=== PATIENT | female | born 1975 | race Caucasian/White ===

== ENCOUNTER 2024-02-14 09:01 | Emergency (ER) | payer OTHER, MEDICARE, MEDICAID, SELFPAY ==
[2024-02-14 09:51] VITALS: BP 135/84; PULSE 64; RESP 18; TEMP 36.6; O2SAT 98; BMI 20.1
--- NOTE | 2024-02-14 10:06 | XR_ITS ---
Examination: Foot, right, 3 views Technique: AP, oblique, lateral views foot, 3 views Date and time of exam: February 14, 2024 1019 hours INDICATIONS: Right foot pain beginning one month ago. FINDINGS: Moderate osteopenia No fracture No cortical bone destruction No dislocation No opaque foreign body IMPRESSION: No fracture No cortical bone destruction
--- NOTE | 2024-02-14 10:53 | EDNOTE_ITS ---
<Statement entered by Montse Nice MD - 02/20/24 17:56> As co-signing physician, I was present and available for consult prn. I concur with the plan and care as documented by the midlevel provider. Lower Extremity Injury RME/HPI General Chief Complaint: Ankle/Foot Injury Stated Complaint: Right foot pain X 1 month Time Seen by Provider: 02/14/24 09:21 Source: patient Arrival date/time: 02/14/24 09:01 This is a 48-year-old female who presents to the emergency department with complaints of right foot pain worsening over 1 month. Patient reports that she has history of foot neuropathy and chronic pain. She did not recently injure her foot. Denies any open sores or recent injuries. Not currently on any pain medication requesting pain medication and x-ray today. Mode of arrival: ambulatory Related Data Home Medications ?Medication ?Instructions ?Recorded ?Confirmed cariprazine 6 mg capsule (Vraylar) 6 mg PO BID ##0 11/12/15 05/08/23 clonazepam 1 mg tablet (Klonopin) 2 mg PO TID #0 tabs 11/12/15 05/08/23 carbamazepine 200 mg tablet 200 mg PO BID 08/06/18 05/08/23 lumateperone 42 mg capsule 42 mg PO QDAY 08/14/22 05/08/23 (Caplyta) vortioxetine 20 mg tablet 20 mg PO QDAY 08/14/22 05/08/23 (Trintellix) Previous Rx's ?Medication ?Instructions ?Recorded cyclobenzaprine 10 mg tablet 10 mg PO HS #6 tabs 09/11/23 lidocaine 5 % topical patch 1 patch topical QDAY #15 ea 11/04/23 naproxen 500 mg tablet 500 mg PO BID PRN pain #30 tabs 11/04/23 gabapentin 100 mg capsule 100 mg PO TID PRN nerve pain #20 02/14/24 caps Allergies Allergy/AdvReac Type Severity Reaction Status Date / Time Penicillins Allergy Mild Rash Verified 11/04/23 17:27 codeine Allergy Unknown Vomiting Verified 11/04/23 17:27 Sulfa (Sulfonamide Allergy Unknown Rash Verified 11/04/23 17:27 Antibiotics) Review of Systems Review of Systems Systems Reviewed: All systems reviewed, normal except as documented Narrative Review of Systems: Gen: No fever, no chills, no weight loss EYES: No discharge, no visual changes, no pain HEENT: No ear pain, no congestion, no sore throat PULM: No shortness of breath, no cough, no congestion CV: No chest pain, no dyspnea on exertion, no palpitations GI: No nausea, no vomiting, no diarrhea, no pain, no constipation : No frequency, no urgency,? no dysuria Musc/skel:+foot pain, no back pain Skin: No rash? ED Exam Narrative Physical exam: General: Sittiing in Exam table in no acute distress, answering questions appropriately HENT: normocephalic, atraumatic, EOMI, PERRLA, moist mucous membranes Chest: chest wall is nontender Cardiac: regular rate and rhythm, normal S1 and S2, no murmurs, rubs, or gallops, capillary refill ?2 seconds Pulmonary: clear to auscultation bilaterally, no wheezing, crackles, or rhonchi Abdominal: active bowel sounds, soft, nontender, nondistended Neuro: A&OX3, CN II-XII intact, sensation grossly intact bilaterally in UE and LE. Skin: no rashes, no ecchymosis Ext: no lower extremity edema. foot exam normal other than ttp to plantar aspect right foot Course Quality Measures none Orders Category Date Time Status XR foot comp RT min 3V Stat Exams 02/14/24 10:06 Completed Vital Signs Vital signs: Vital Signs Temperature 97.9 F 02/14/24 09:51 Pulse Rate 64 02/14/24 09:51 Respiratory Rate 18 02/14/24 09:51 Blood Pressure 135/84 H 02/14/24 09:51 Pulse Oximetry (%) 98 02/14/24 09:51 Oxygen Delivery Method Room Air 02/14/24 09:51 Extremity Injury, Lower Patient data External records reviewed:: [facility] previous records Clinical information provided by:: patient Social determinants that could affect healthcare access:: none Patient has the following chronic illnesses:: no How is presenting disease/condition affected by chronic disease/condition?: no chronic disease Evaluation data The following diagnostics were reviewed and interpreted by me:: radiology exam(s) Lab and/or radiology exams considered but not ordered:: no Interpretation Summary: Examination: Foot, right, 3 views Technique: AP, oblique, lateral views foot, 3 views Date and time of exam: February 14, 2024 1019 hours INDICATIONS: Right foot pain beginning one month ago. FINDINGS: Moderate osteopenia No fracture No cortical bone destruction No dislocation No opaque foreign body IMPRESSION: No fracture No cortical bone destruction Medications / Prescriptions Medications or Prescriptions considered but not ordered:: none Medication administrations:: no Consultations Consultation(s) initiated? (list below): No Diagnosis Extremity Injury, Lower Differential Diagnosis: ankle sprain and strain, puncture wound of foot, fracture of toe and ankle fracture Most likely diagnosis given after review of the tests above:: Neuropathy of foot Admission Indicated Admission indicated?: not indicated Explain why admission is indicated or not indicated:: none Admission Request Was there a request for admission?: No Disposition Plan Disposition Plan: Discharge Discharge Attestation Discharge Attestation: The patient and all family members were given an opportunity to ask questions and understood the discharge instructions. Discharge instructions specifically effects, indications for sooner follow up or return to the emergency department, and the expected course of current diagnosis. Patient condition: Stable Discharge Plan Plan Patient Disposition: HOME (Self Care) Prescriptions/Referrals Prescriptions/Med Rec: New gabapentin 100 mg capsule 100 mg PO TID PRN (Reason: nerve pain) Qty: 20 0RF No Action clonazepam [Klonopin] 1 MG tablet 2 mg PO TID Qty: 0 Vraylar 6 MG capsule 6 mg PO BID Qty: 0 carbamazepine 200 mg Tablet 200 mg PO BID naproxen 500 mg tablet 500 mg PO BID PRN (Reason: pain) Qty: 30 0RF lidocaine 5 % adhesive patch,medicated 1 patch topical QDAY Qty: 15 0RF Rx Instructions: leave on most painful area for up to 12 hrs Trintellix 20 mg Tablet 20 mg PO QDAY Caplyta 42 mg Capsule 42 mg PO QDAY cyclobenzaprine 10 mg tablet 10 mg PO HS Qty: 6 0RF Referrals: Alice Dean FNP (ARIACHL) [Primary Care Provider] - In 1 week Problem List Clinical Impression: Neuropathy of foot Patient/Caregiver Discharge Instructions Discharge Activity: activity as tolerated Education Materials: ED Neuropathy, Peripheral Additional Instructions: Take the nerve pain medication that was sent to the pharmacy please follow-up with your primary doctor. Return to the emergency department is any worsening symptoms change in condition. Print Language: Indonesian Stand Alone Forms: Lakesha Award Info., Patient Portal Info Letter GARCIA/CLOTH BLEACHING SUPERVISOR Supervising Physician PA/CLOTH BLEACHING SUPERVISOR Supervising Physician: dr. Saenz
== END 2024-02-14 13:21 | disposition home or self-care (01) ==
PROVIDERS: Emergency Provider Emergency Medicine; PCP Nurse Practitioner Primary Care
DX: G62.9 Polyneuropathy, unspecified (principal)
CPT/HCPCS: 73630; 99283

== ENCOUNTER 2024-03-19 17:25 | Emergency (ER) | payer OTHER, MEDICARE, MEDICAID, SELFPAY ==
[2024-03-19 18:18] VITALS: BP 140/72; PULSE 75; RESP 16; TEMP 36.5; O2SAT 98
--- NOTE | 2024-03-19 18:29 | PC.NURSE ---
Patient to ER from [facility] and taken to room 19 with her friend at bedside. Patient c/o SI, Patient is tearful and nervous. Maria D Wilkins wanded patient, patient in her pajamas and refuses to get into a gown. When asking patient why she is here she states the voices have been telling me to kill myself and they are getting louder patient states they started this morning, patient states she tried to cut her left wrist with a knife. Superficial abrasion noted to inner left wrist, no bleeding noted. Patient states she has tried to kill herself before by overdosing and last time was 4 yrs ago. Patient also states her mother a few months ago and she has been having problems with her and thinks he is gonna throw her out of the house. Ciales scale completed. 1 to [address] for patient's safety[address] Chart up to be seen by er provider.
--- NOTE | 2024-03-19 18:32 | PD.EDSUICD ---
ED Psych RME/HPI General Chief Complaint: Suicidal Stated Complaint: states attempted to slit wrist with knife/SI Time Seen by Provider: 03/19/24 18:23 Source: patient Arrival date/time: 03/19/24 17:25 Mode of arrival: ambulatory Limitations: no limitations RME / HPI RME / HPI Narrative: Dr. Epperson?s Main ED Evaluation: The patient is a 48-year-old female with a known history of mental health conditions, who presents to the emergency department via private auto due to worsening psychiatric symptoms. She reports experiencing auditory hallucinations instructing her to harm herself. The patient states that these symptoms intensify during periods of heightened stress. She shares her mother recently passed a few months ago. She has been under the care of an established psychiatrist for over ten years and confirms adherence to her current psychotropic medication regimen, with an adequate supply on hand. The patient denies any history of receiving mental health treatment at this hospital and reports no other associated symptoms or medical complaints. However, during the examination, she was observed coughing. She attributes this to her COPD and a long-standing history of tobacco use. MD complaint: feels depressed and other (auditory hallucinations) Duration: changing over time Exacerbating factors: other (stress) Context: significant life stressor Associated psychiatric symptoms: auditory hallucinations Associated symptoms: denies other symptoms Treatments prior to arrival: none Related Data Home Medications ?Medication ?Instructions ?Recorded ?Confirmed cariprazine 6 mg capsule (Vraylar) 6 mg PO BID ##0 11/12/15 05/08/23 clonazepam 1 mg tablet (Klonopin) 2 mg PO TID #0 tabs 11/12/15 05/08/23 carbamazepine 200 mg tablet 200 mg PO BID 08/06/18 05/08/23 lumateperone 42 mg capsule 42 mg PO QDAY 08/14/22 05/08/23 (Caplyta) vortioxetine 20 mg tablet 20 mg PO QDAY 08/14/22 05/08/23 (Trintellix) Previous Rx's ?Medication ?Instructions ?Recorded cyclobenzaprine 10 mg tablet 10 mg PO HS #6 tabs 09/11/23 lidocaine 5 % topical patch 1 patch topical QDAY #15 ea 11/04/23 naproxen 500 mg tablet 500 mg PO BID PRN pain #30 tabs 11/04/23 gabapentin 100 mg capsule 100 mg PO TID PRN nerve pain #20 02/14/24 caps Allergies Allergy/AdvReac Type Severity Reaction Status Date / Time Penicillins Allergy Mild Rash Verified 03/19/24 17:28 codeine Allergy Unknown Vomiting Verified 03/19/24 17:28 Sulfa (Sulfonamide Allergy Unknown Rash Verified 03/19/24 17:28 Antibiotics) gabapentin AdvReac Mild Vomiting Verified 03/19/24 17:28 Review of Systems Review of Systems Systems Reviewed: All systems reviewed, normal except as documented Past Medical History Past Medical History NEUROLOGIC: Positive Neurological Disorders, Seizures and Peripheral Neuropathy CARDIAC: Negative Cardiac Disorders or Congestive Heart Failure RESPIRATORY: Positive Chronic Obstructive Pulmonary Disease (COPD), Bronchitis (in past) and Pneumonia (in past); Negative Asthma GASTROINTESTINAL: Positive Gastrointestinal Disorders and Gall Bladder Disease; Negative Hepatitis GENITOURINARY: Negative Genitourinary Disorders or Renal Disease REPRODUCTIVE: Positive Previous Pregnancies; Negative Pelvic Inflammatory Disease MUSCULOSKELETAL: Positive Musculoskeletal Disorders, Fibromyalgia and Fractures ENDOCRINE: Negative Endocrine Disorders, Diabetes Mellitus Type 1 or Diabetes Mellitus Type 2 HEMATOLOGIC: Positive Blood Disorders and Anemia; Negative Sickle Cell Disease PSYCHO/SOCIAL: Positive Psychiatric Problems, Schizophrenia, Bipolar Disorder, Depression (manic depressive) and Anxiety OTHER HISTORY: Positive Hospitalization, Blood Transfusions, Chicken Pox and Clostridium Difficile; Negative Autoimmune Disease, Shingles, Blood Transfusion Reaction, Anesthesia Reactions, MRSA or Cancer Family History FAMILY HISTORY: Positive Family Psychiatric Problems, Family Cardiac Disorders and Family Surgery; Negative Family Respiratory Disorders, Family Gastrointestinal Problems, Family Cancer or Family Anesthesia Reaction Surgical History SURGICAL: Positive Abdominal Surgery, Hysterectomy and Tubal Ligation; Negative Cardiac Surgery, Pacemaker, Endocrine Surgery or Joint Replacement Social History SMOKING STATUS: Current every day smoker SECOND HAND EXPOSURE: No SUBSTANCE USE: does not use ED Exam Narrative Physical exam: GENERAL APPEARANCE: alert and oriented x 4, well-developed, well-nourished, no acute distress VITALS: All vitals were reviewed and the pulse ox is 98% on room air, which is normal according to my interpretation. HEENT: Normocephalic, atraumatic; pupils equal, round, reactive to light; EOMI; mucous membranes pink, moist; oropharynx clear NECK: Supple LUNGS: CTABL; no wheezes, no rales, no rhonchi HEART: Regular rate, regular rhythm; normal S1, S2; no murmurs ABDOMEN: non distended; normal BS; soft, no tenderness, no guarding, no rebound; no masses, no organomegaly, no hernia BACK: no CVA tenderness EXTREMITIES: atraumatic; no edema NEUROLOGIC: awake; alert and oriented x4; cranial nerves II-XII grossly intact; no focal sensory or motor deficits PSYCHIATRIC: +auditory hallucinations, tearful SKIN: warm, dry, normal color; no rashes General Limitations: Present no limitations Course Course Course Narrative: Patient was placed in ED observation at 2130 on 03/19/2024 for treatment and monitoring of psychiatric symptoms. Symptoms consist of auditory hallucinations instructing her to harm herself. Treatment plan includes psychiatric consult, reassessments, and possible placement into psychiatric facility. The patient had access and provided personal hygiene, shower, food, water, and daily medications. Patient is medically clear for crisis evaluation. 0600: Care signed out to Dr. England (emergency physician). Past medical, surgical, social and family history reviewed. Vitals and home medications reviewed. Results and treatment plan discussed. They will assume the care of the patient at this time and will follow the patient, pending 1798 psychiatric evaluation. At this time, observation has ended. Quality Measures none Orders Category Date Time Status 1799 Psychiatric Hold NOW Care 03/19/24 18:30 Ordered Acetaminophen Stat Lab 03/19/24 18:54 Completed Alcohol, Blood Medical Stat Lab 03/19/24 18:54 Completed Basic Metabolic Panel Stat Lab 03/19/24 18:54 Completed CBC Stat Lab 03/19/24 18:54 Completed Drug Screen,Urine Stat Lab 03/19/24 18:50 Completed Free T4 (Free Thyroxine) Stat Lab 03/19/24 18:54 Completed HCG Qualitative,Urine Stat Lab 03/19/24 18:50 Completed Salicylate Stat Lab 03/19/24 18:54 Completed TSH [Thyroid Stimulating Hormone] Stat Lab 03/19/24 18:54 Completed LORazepam [Ativan] Med 03/19/24 18:30 Discontinued 2 mg PO X1 ONE Vital Signs Vital signs: Vital Signs Temperature 97.7 F 03/19/24 18:18 Pulse Rate 75 03/19/24 18:18 Respiratory Rate 16 03/19/24 18:18 Blood Pressure 140/72 H 03/19/24 18:18 Pulse Oximetry (%) 98 03/19/24 18:18 Oxygen Delivery Method Room Air 03/19/24 18:18 Psych MDM Narrative MDM Narrative:: 2141 Patient is medically cleared for mental health evaluation. Scribe Attestation: I, Jazzmine Brock, am scribing for and in the presence of Dr. Epperson. Provider Notation: Although this document has been carefully reviewed, there may still be some phonetic and other typographical errors. These errors are purely grammatical due to imperfections in the software program and should not be construed in any way to compromise the substance of the patient's medical care during this visit. Patient data External records reviewed:: [facility] previous records Clinical information provided by:: patient Social determinants that could affect healthcare access:: mental health Patient has the following chronic illnesses:: See PMH How is presenting disease/condition affected by chronic disease/condition?: exacerbated by Evaluation data The following diagnostics were reviewed and interpreted by me:: lab results Lab and/or radiology exams considered but not ordered:: None Interpretation Summary: Utox neg Medications / Prescriptions Medications or Prescriptions considered but not ordered:: None Medication administrations:: Medication Administration History Discontinued Medications Lorazepam (Lorazepam 0.5 Mg Tablet) 2 mg PO X1 ONE Stop: 03/19/24 18:31 Last Admin: 03/19/24 18:57 Dose: 2 mg Documented By: KM As above Consultations Consultation(s) initiated? (list below): No Diagnosis Psych Differential Diagnosis: other (decompensated psychosis, depressive episode due to psychotic features, suicidal ideation, hypothyroidism) Most likely diagnosis given after review of the tests above:: See clinical impression Admission Indicated Admission indicated?: not indicated Explain why admission is indicated or not indicated:: Pending mental health evaluation Admission Request Was there a request for admission?: No Disposition Plan Disposition Plan: other (specify) (Pending mental health evaluation) Discharge Plan Plan Disposition Comment: Stable at sign out. Prescriptions/Referrals Prescriptions/Med Rec: No Action clonazepam [Klonopin] 1 MG tablet 2 mg PO TID Qty: 0 Vraylar 6 MG capsule 6 mg PO BID Qty: 0 carbamazepine 200 mg Tablet 200 mg PO BID naproxen 500 mg tablet 500 mg PO BID PRN (Reason: pain) Qty: 30 0RF lidocaine 5 % adhesive patch,medicated 1 patch topical QDAY Qty: 15 0RF Rx Instructions: leave on most painful area for up to 12 hrs Trintellix 20 mg Tablet 20 mg PO QDAY Caplyta 42 mg Capsule 42 mg PO QDAY cyclobenzaprine 10 mg tablet 10 mg PO HS Qty: 6 0RF gabapentin 100 mg capsule 100 mg PO TID PRN (Reason: nerve pain) Qty: 20 0RF Referrals: Dean (ARIACHL),Alice, PERFUSIONIST [Primary Care Provider] - In 1 week Problem List Clinical Impression: Acute psychosis, Suicide ideation Patient/Caregiver Discharge Instructions Print Language: Northern Irish
[2024-03-19 18:54] VITALS: BMI 19.7
[2024-03-19] MEDS: LORazepam 0.5 MG TABLET 2 MG PO (18:57)
[2024-03-19 19:16] LABS: HCG Qualitative,Urine Negative
[2024-03-19 19:20] LABS: Basophils # (Auto) 0.1 Thou/mm3 (0.0-0.2); Basophils % (Auto) 1 % (0-2.5); Eosinophils # (Auto) 0.1 Thou/mm3 (0.0-0.5); Eosinophils % (Auto) 2 % (0-10); Hematocrit 41.5 % (36.0-46.0); Hemoglobin 13.8 g/dL (12.0-16.0); Immature Granulocytes % (Auto) 1 % (0-0); Immature Granulocytes Auto 0.03 Thou/mm3 (0.00-0.00); Lymphocytes % (Auto) 31 % (10-50); Mean Corpuscular HGB Conc 33.3 g/dl (31.0-37.0); Mean Corpuscular Hemoglobin 31.5 pg (25.0-35.0); Mean Corpuscular Volume 95 fL (80-100); Monocytes # (Auto) 0.4 Thou/mm3 (0.0-0.8); Monocytes % (Auto) 7 % (0-12); Neutrophils # (Auto) 3.8 Thou/mm3 (1.8-7.7); Neutrophils % (Auto) 59 % (37-80); Nucleated Red Blood Cell % 0 /100 WBC (0); Platelet Count 186 Thou/mm3 (140-440); RDW Standard Deviation 48.9 fL (36.4-46.3); Red Blood Count 4.38 Miln/mm3 (4.00-5.20); White Blood Count 6.5 Thou/mm3 (3.6-11.0)
[2024-03-19 20:24] VITALS: BP 130/66; PULSE 68; RESP 16; TEMP 36.6; O2SAT 99
[2024-03-19 20:57] LABS: Amphetamine/Methamp Scrn,U Negative (Negative); Barbiturate Screen,Urine Negative (Negative); Benzodiazepines Screen,Urine Negative (Negative); Benzoylecgonine Screen, Ur Negative (Negative); Fentanyl Screen,Urine Negative (Negative); Opiate Screen,Urine Negative (Negative); THC Screen,Urine Negative (Negative)
[2024-03-19 21:02] LABS: Anion Gap 5 (7-16); BUN/Creatinine Ratio 7 Ratio (12-20); Blood Urea Nitrogen < 5 mg/dL (9-23); Calcium 9.3 mg/dL (8.3-10.6); Carbon Dioxide 28.1 mMol/L (20.0-31.0); Chloride 107 mMol/L (98-107); Creatinine (Component) 0.7 mg/dL (0.6-1.3); Estimated Creatinine Clearance 75.2 mL/min (>60); Glucose 85 mg/dL (74-106); Osmolality,Calculated 275 (275-295); Potassium 3.9 mMol/L (3.4-5.1); Sodium 140 mMol/L (136-145); eGFR > 60 See Note
[2024-03-19 21:09] LABS: Acetaminophen < 2.0 mcg/mL (10.0-20.0); Alcohol, Blood Medical < 3.0 mg/dL (0-10.0); Free T4 (Free Thyroxine) 0.95 ng/dL (0.89-1.76); Salicylate < 3.0 mg/dL; Thyroid Stimulating Hormone 3.08 uIU/mL (0.55-4.78)
[2024-03-20 01:43] VITALS: BP 128/88; PULSE 80; RESP 16; TEMP 36.8; O2SAT 97
[2024-03-20 06:00] VITALS: BP 137/73; PULSE 74; RESP 19; TEMP 36.8; O2SAT 93
[2024-03-20 07:55] VITALS: BP 144/80; PULSE 90; RESP 17; TEMP 36.8; O2SAT 98
[2024-03-20 08:00] VITALS: BP 144/80; PULSE 90; RESP 17; TEMP 36.8; O2SAT 98
--- NOTE | 2024-03-20 08:03 | PC.NURSE ---
pt was woken up and given meal tray. pt walked to restroom after vitals.
--- NOTE | 2024-03-20 08:21 | PC.NURSE ---
Pt is pleasant and cooperative, she states that she is not hearing voices any longer that sleep took them away. pt says states she is feeling ok. checked pt left wrist slight rednesses noted superficial no bruising.
[2024-03-20] MEDS: ALBUTEROL/IPRATROPIUM (Duoneb) RT SOL 3 ML NEBU INH (09:04)
[2024-03-20 09:06] VITALS: PULSE 85; RESP 20; O2SAT 100
--- NOTE | 2024-03-20 09:47 | EDNOTE_ITS ---
Emergency Room Addendum <Karuna Mcnally - Last Filed: 03/20/24 09:48> Addendum Narrative: At 6 AM on 03/20/2024, the care of the patient was transferred from Dr. Epperson, see his notes for complete H&P and ED course. I reviewed all diagnostic test results. At this point, diagnoses include Treatment here included Significant improvement Our ASW has evaluated the patient and states she is safe to go home. Reports patient has an appointment with psychiatrist 03/27/2024 and is going to attempt to get a sooner appointment. Patient discharged in stable condition. Joe England MD <Joe England MD - Last Filed: 03/20/24 10:14> Addendum Narrative: At 6 AM on 03/20/2024, the care of the patient was transferred from Dr. Epperson, see his notes for complete H&P and ED course. I reviewed all diagnostic test results. Significant improvement noted. Our ASW has evaluated the patient and states she is safe to go home with safety plan. Reports patient has an appointment with psychiatrist 03/27/2024 and is going to attempt to get a sooner appointment. Patient discharged in stable condition. Discharge Instructions from Dr. England printed for you: 1. After evaluation, you are being discharged home after being seen by our ED Sludge Filtration Operator. Because you report no thoughts of hurting yourself or others. And no hallucinations currently. 2. Continue care for both mental and physical health with your private doctors. 3. Seek immediate medical care with any concerns. You can call 911 if you have thoughts of hurting yourself or with any concerns. Joe England MD
--- NOTE | 2024-03-20 09:50 | PC.NURSE ---
Social Service cleared patient, son in room with pt he states he has power of medical claims examiner and will bring documents to hospital to have on file.
--- NOTE | 2024-03-20 09:52 | PC.CC ---
Patient is a 48 year-old female who presents to the hospital for a mental health evaluation. Melina made nuog-ey-sdiv contact with patient to complete assessment. ASW?s introduced self, role, and reason for assessment to patient. ASW disclosed limits of confidentiality as well. Patient appeared alert and oriented to self, place, and situation. Patient made appropriate eye contact and engaged in assessment. Patient mood appeared euthymic, patient was able to engage in assessment and made appropriate eye contact. Patient?s thought process was linear and organized. Patient reports yesterday she was extremely stressed as she had been ?scammed out of 2k.? Patient began to have command auditory hallucinations telling her to harm herself. Patient reports in times of extreme stress she starts to have auditory hallucination. Patient reports that she is no longer having auditory hallucinations and suicidal ideations upon being able to get some sleep while here at the hospital. Patient has a mental health diagnosis of Schizoaffective Disorder and is compliant with her medication. Patient is provided with mental health services by psychiatrist Dr. Fede Camara. Patient?s next appointment is March 27, 2024. Patient reports the last time she was placed on a 5150-hold was 4 years ago when she attempted suicide by overdosing on medication. Patient reports she is willing to safety plan with follow-up with her psychiatrist. Amelia PEDROZA made telephone contact with patient?s , Kerri Burciaga for collateral information. He was able to confirm that patient was scammed out of 2k which led to her being stressed. Patient?s reports the patient last had an episode of stress which led to auditory hallucinations in August 2023. Upon clinical consultation with Oneida BRICENO patient does not meet criteria for 5150-hold. Safety plan was established with patient and patient?s Leif. Safety plan is that patient?s adult son Koby Burciaga who lives at home with patient will provide extra supervision for the next 72 hours. Patient?s reports there are no firearms in the home. will keep all medications and sharps secure as best as he can from the patient. Patient will attempt to get a sooner appointment with the psychiatrist. Patient?s son will present himself to the hospital to product picker patient. ASW provided updated discharge disposition to Dr. England, tip cementer Sara, and VANE Giron.
[2024-03-20 09:56] VITALS: BP 161/70; PULSE 68; RESP 18; TEMP 36.4; O2SAT 96
== END 2024-03-20 10:03 | disposition home or self-care (01) ==
PROVIDERS: Emergency Medicine; Emergency Provider Emergency Medicine; PCP Nurse Practitioner Primary Care
DX: R45.851 Suicidal ideations (principal); F20.9 Schizophrenia, unspecified; F32.A Depression, unspecified
CPT/HCPCS: 36415; 80048; 80307; 80320; 80329; 81025; 84439; 84443; 85025; 90839; 94640; 96127; 99284; A9270; G0480

== ENCOUNTER 2024-05-29 19:12 | Emergency (ER) | payer OTHER, MEDICARE, SELFPAY ==
[2024-05-29 19:13] VITALS: BMI 23.0
[2024-05-29 20:32] VITALS: BP 167/75; PULSE 70; RESP 20; TEMP 36.3; O2SAT 99
--- NOTE | 2024-05-29 20:46 | PD.EDEXREM ---
ED Extremity Problem RME/HPI General Chief complaint: Extremity Injury, Lower Stated complaint: BILATERAL FEET SWELLING Time Seen by Provider: 05/29/24 20:40 Arrival date/time: 05/29/24 19:12 48F with history of psych and feet neuropathy presents to ED with several days of bilateral feet swelling. Patient has seen PCP who ordered outpatient labs, US, and prescribed ibuprofen. Patient denies CP, URI symptoms, and SOB. No recent med changes. Limitations: no limitations Related Data Home Medications ?Medication ?Instructions ?Recorded ?Confirmed cariprazine 6 mg capsule (Vraylar) 6 mg PO BID ##0 11/12/15 05/08/23 clonazepam 1 mg tablet (Klonopin) 2 mg PO TID #0 tabs 11/12/15 05/08/23 carbamazepine 200 mg tablet 200 mg PO BID 08/06/18 05/08/23 lumateperone 42 mg capsule 42 mg PO QDAY 08/14/22 05/08/23 (Caplyta) vortioxetine 20 mg tablet 20 mg PO QDAY 08/14/22 05/08/23 (Trintellix) Previous Rx's ?Medication ?Instructions ?Recorded cyclobenzaprine 10 mg tablet 10 mg PO HS #6 tabs 09/11/23 lidocaine 5 % topical patch 1 patch topical QDAY #15 ea 11/04/23 naproxen 500 mg tablet 500 mg PO BID PRN pain #30 tabs 11/04/23 gabapentin 100 mg capsule 100 mg PO TID PRN nerve pain #20 02/14/24 caps prednisone 20 mg tablet 20 mg PO BID 4 days #8 tabs 05/29/24 Allergies Allergy/AdvReac Type Severity Reaction Status Date / Time lactose Allergy Severe nause Verified 03/20/24 08:26 Penicillins Allergy Mild Rash Verified 03/19/24 17:28 codeine Allergy Unknown Vomiting Verified 03/19/24 17:28 Sulfa (Sulfonamide Allergy Unknown Rash Verified 03/19/24 17:28 Antibiotics) gabapentin AdvReac Mild Vomiting Verified 03/19/24 17:28 Review of Systems Review of Systems Systems Reviewed: All systems reviewed, normal except as documented Constitutional Constitutional: Reports system reviewed and no additional complaints, except as documented, Denies fever(s) and Denies headache(s) ENT Ears, Nose, Mouth, and Throat: Denies disequilibrium and Denies headache(s) Cardiovascular Cardiovascular: Reports system reviewed and no additional complaints, except as documented, Denies chest pain and Denies dyspnea Respiratory Respiratory: Reports system reviewed and no additional complaints, except as documented, Denies cough and Denies dyspnea Gastrointestinal Gastrointestinal: Reports system reviewed and no additional complaints, except as documented, Denies abdominal pain, Denies nausea and Denies vomiting Musculoskeletal Musculoskeletal: Reports as per HPI and Reports joint swelling Neurologic Neurologic: Reports system reviewed and no additional complaints, except as documented, Denies confusion, Denies disequilibrium and Denies headache(s) Psychiatric Psychiatric: Denies confusion Past Medical History Past Medical History NEUROLOGIC: Positive Neurological Disorders, Seizures and Peripheral Neuropathy CARDIAC: Negative Cardiac Disorders or Congestive Heart Failure RESPIRATORY: Positive Chronic Obstructive Pulmonary Disease (COPD), Bronchitis (in past) and Pneumonia (in past); Negative Asthma GASTROINTESTINAL: Positive Gastrointestinal Disorders and Gall Bladder Disease; Negative Hepatitis GENITOURINARY: Negative Genitourinary Disorders or Renal Disease REPRODUCTIVE: Positive Previous Pregnancies; Negative Pelvic Inflammatory Disease MUSCULOSKELETAL: Positive Musculoskeletal Disorders, Fibromyalgia and Fractures ENDOCRINE: Negative Endocrine Disorders, Diabetes Mellitus Type 1 or Diabetes Mellitus Type 2 HEMATOLOGIC: Positive Blood Disorders and Anemia; Negative Sickle Cell Disease PSYCHO/SOCIAL: Positive Psychiatric Problems, Schizophrenia, Bipolar Disorder, Depression (manic depressive) and Anxiety OTHER HISTORY: Positive Hospitalization, Blood Transfusions, Chicken Pox and Clostridium Difficile; Negative Autoimmune Disease, Shingles, Blood Transfusion Reaction, Anesthesia Reactions, MRSA or Cancer Family History FAMILY HISTORY: Positive Family Psychiatric Problems, Family Cardiac Disorders and Family Surgery; Negative Family Respiratory Disorders, Family Gastrointestinal Problems, Family Cancer or Family Anesthesia Reaction Surgical History SURGICAL: Positive Abdominal Surgery, Hysterectomy and Tubal Ligation; Negative Cardiac Surgery, Pacemaker, Endocrine Surgery or Joint Replacement Social History SMOKING STATUS: Former smoker SECOND HAND EXPOSURE: No SUBSTANCE USE: does not use ED Exam General Limitations: Present no limitations General appearance: Present alert and in no apparent distress Head Head exam: Present atraumatic Eye Eye exam: Present normal appearance, PERRL and EOMI ENT ENT exam: Present normal exam, normal oropharynx and mucous membranes moist Neck Neck exam: Present normal inspection, full ROM and trachea midline Chest Chest inspection: Present normal inspection and symmetric chest wall rise Respiratory Respiratory exam: Present normal lung sounds bilaterally Cardiovascular Cardiovascular exam: Present regular rate, normal rhythm and normal heart sounds Abdominal Exam Abdominal exam: Present soft and normal bowel sounds Extremities Exam Extremities exam: Present full ROM Expanded Lower Extremity Exam Foot/toe exam: Present full ROM Back Exam Back exam: Present normal inspection and full ROM Neurological Exam Neurological exam: Present alert, oriented X3 and CN II-XII intact Psychiatric Psychiatric exam: Present normal affect and normal mood Skin Skin exam: Present warm, dry, intact and normal color Course Quality Measures none Orders Category Date Time Status Dexamethasone Inj [Decadron Inj] Med 05/29/24 20:40 Discontinued 10 mg PO X1 ONE Vital Signs Vital signs: Vital Signs Temperature 97.4 F 05/29/24 20:32 Pulse Rate 70 05/29/24 20:32 Respiratory Rate 20 05/29/24 20:32 Blood Pressure 167/75 H 05/29/24 20:32 Pulse Oximetry (%) 99 05/29/24 20:32 Oxygen Delivery Method Room Air 05/29/24 20:32 O2 at 99% on RA and WNLs Extremity Problem MDM Narrative MDM Narrative:: 48F with history of psych and feet neuropathy presents to ED with several days of bilateral feet swelling. Patient has seen PCP who ordered outpatient labs, US, and prescribed ibuprofen. Patient denies CP, URI symptoms, and SOB. No recent med changes. Physical exam reveals bilateral feet swelling. No redness or tenderness. Normal WOB. Patient is afebrile, calm, and alert. Steroids improved swelling. Patient data External records reviewed:: [facility] previous records Clinical information provided by:: patient Social determinants that could affect healthcare access:: mental health Patient has the following chronic illnesses:: psych neuropathy How is presenting disease/condition affected by chronic disease/condition?: exacerbated by Evaluation data The following diagnostics were reviewed and interpreted by me:: other (specify) (none) Lab and/or radiology exams considered but not ordered:: not ordered Interpretation Summary: n/a Medications / Prescriptions Medications or Prescriptions considered but not ordered:: ordered Medication administrations:: Medication Administration History Discontinued Medications Dexamethasone Sodium Phosphate (Dexamethasone Sod Phos Inj 10 Mg/Ml Vial) 10 mg PO X1 ONE Stop: 05/29/24 20:41 Last Admin: 05/29/24 20:49 Dose: 10 mg Documented By: above Consultations Consultation(s) initiated? (list below): No Diagnosis Extremity Problem Differential Diagnosis: herpes zoster, gout, cellulitis, superficial thrombophlebitis, deep venous thrombosis of upper extremity, lower extremity edema, deep vein thrombosis of lower extremity and other (feet/skin swelling) Most likely diagnosis given after review of the tests above:: feet swelling Admission Indicated Admission indicated?: not indicated Admission Request Was there a request for admission?: No Disposition Plan Disposition Plan: Discharge Discharge Attestation Discharge Attestation: The patient and all family members were given an opportunity to ask questions and understood the discharge instructions. Discharge instructions specifically effects, indications for sooner follow up or return to the emergency department, and the expected course of current diagnosis. Patient condition: Stable Discharge Plan Plan Patient Disposition: HOME (Self Care) Disposition Comment: Stable Prescriptions/Referrals Prescriptions/Med Rec: New prednisone 20 mg tablet 20 mg PO BID 4 Days Qty: 8 0RF No Action clonazepam [Klonopin] 1 MG tablet 2 mg PO TID Qty: 0 Vraylar 6 MG capsule 6 mg PO BID Qty: 0 carbamazepine 200 mg Tablet 200 mg PO BID naproxen 500 mg tablet 500 mg PO BID PRN (Reason: pain) Qty: 30 0RF lidocaine 5 % adhesive patch,medicated 1 patch topical QDAY Qty: 15 0RF Rx Instructions: leave on most painful area for up to 12 hrs Trintellix 20 mg Tablet 20 mg PO QDAY Caplyta 42 mg Capsule 42 mg PO QDAY cyclobenzaprine 10 mg tablet 10 mg PO HS Qty: 6 0RF gabapentin 100 mg capsule 100 mg PO TID PRN (Reason: nerve pain) Qty: 20 0RF Referrals: Alice Dean FNP ([facility]) [Primary Care Provider] - In 1 week Problem List Clinical Impression: Bilateral swelling of feet Patient/Caregiver Discharge Instructions Additional Instructions: Please follow-up with PCP within 24-48 hours and return immediately if symptoms worsen. If problem persists, recommend outpatient PT and/or MRI follow-up. In the meantime, rest, use ice/heat, and/or compression. Print Language: Niuean Stand Alone Forms: Patient Portal Info Letter GARCIA/CHEMICAL LAB SUPERVISOR Supervising Physician GARCIA/ANAYA Supervising Physician: Dr. Barnett
[2024-05-29] MEDS: DEXAMETHASONE SOD PHOS INJ 10 MG/ML VIAL PO (20:49)
== END 2024-05-29 22:45 | disposition home or self-care (01) ==
PROVIDERS: Emergency Provider Emergency Medicine; PCP Nurse Practitioner Primary Care
DX: R22.43 Localized swelling, mass and lump, lower limb, bilateral (principal); G62.9 Polyneuropathy, unspecified; F31.9 Bipolar disorder, unspecified; F41.9 Anxiety disorder, unspecified; F20.9 Schizophrenia, unspecified; Z87.891 Personal history of nicotine dependence
CPT/HCPCS: 99282; J1100

== ENCOUNTER → 2024-07-02 | Outpatient (CLI) | payer OTHER, MEDICARE, SELFPAY ==
--- NOTE | 2024-07-02 15:07 | XR_ITS ---
Examination: Lumbar spine, 5 views Technique: Lumbar spine AP, lateral, coned lateral lower lumbar spine, bilateral obliques 5 views Exam date and time: July 02, 2024 1510 hours INDICATIONS: Low back pain 6 weeks radiating down the right leg FINDINGS: Adequate alignment lumbar vertebral bodies No lumbar fracture No significant lumbar disc narrowing No spondylolisthesis IMPRESSION: No lumbar fracture No significant lumbar disc narrowing
== END | disposition home or self-care (01) ==
LOC: CDIM 14:53
PROVIDERS: PCP Nurse Practitioner Primary Care; Referring Provider Chiropractor; Visit Provider Chiropractor
DX: M54.50 Low back pain, unspecified (principal)
CPT/HCPCS: 72110

== ENCOUNTER → 2024-07-11 | Outpatient (CLI) | payer OTHER, MEDICARE, SELFPAY ==
--- NOTE | 2024-07-11 11:00 | XR_ITS ---
Examination: Arterial duplex lower extremity study. Date and time of exam: July 12, 1999 2512 noon INDICATIONS: Bilateral leg swelling 3 months Findings: Duplex sonographic imaging of the lower extremity arteries using B-mode/Thomas scale imaging and Doppler spectral analysis and color flow. Ankle brachial indices have been recorded. Right common femoral artery demonstrates triphasic flow. Right superficial femoral artery demonstrates triphasic flow. Right popliteal artery demonstrates triphasic flow. Right posterior tibial artery demonstrated triphasic flow. Right ankle/brachial index is 1.1. Left common femoral artery demonstrates triphasic flow. Left superficial femoral artery demonstrates triphasic flow. Left popliteal artery demonstrates triphasic flow. Left posterior tibial artery demonstrated biphasic flow. Left ankle/brachial index is 1.0. Impression: No significant obstructive arterial disease lower extremities
== END | disposition home or self-care (01) ==
PROVIDERS: PCP Nurse Practitioner Primary Care; Referring Provider Nurse Practitioner Primary Care; Visit Provider Nurse Practitioner Primary Care
DX: R60.0 Localized edema (principal)
CPT/HCPCS: 93925

== ENCOUNTER → 2024-07-28 | Outpatient (CLI) | payer OTHER, SELFPAY ==
[2024-07-28 11:57] LABS: Misc Send Out* See Sep Rpt
[2024-07-28 12:16] LABS: Basophils # (Auto) 0.1 Thou/mm3 (0.0-0.2); Basophils % (Auto) 1 % (0-2.5); Eosinophils # (Auto) 0.1 Thou/mm3 (0.0-0.5); Eosinophils % (Auto) 1 % (0-10); Hematocrit 41.6 % (36.0-46.0); Hemoglobin 14.5 g/dL (12.0-16.0); Immature Granulocytes % (Auto) 0 % (0-0); Immature Granulocytes Auto 0.01 Thou/mm3 (0.00-0.00); Lymphocytes # (Auto) 1.7 Thou/mm3 (1.0-4.8); Lymphocytes % (Auto) 25 % (10-50); Mean Corpuscular HGB Conc 34.9 g/dl (31.0-37.0); Mean Corpuscular Volume 89 fL (80-100); Monocytes # (Auto) 0.4 Thou/mm3 (0.0-0.8); Monocytes % (Auto) 6 % (0-12); Neutrophils # (Auto) 4.7 Thou/mm3 (1.8-7.7); Neutrophils % (Auto) 68 % (37-80); Nucleated Red Blood Cell % 0 /100 WBC (0); Platelet Count 208 Thou/mm3 (140-440); RDW Standard Deviation 42.4 fL (36.4-46.3); Red Blood Count 4.67 Miln/mm3 (4.00-5.20); White Blood Count 6.9 Thou/mm3 (3.6-11.0)
[2024-07-28 12:35] LABS: Alanine Aminotransferase 12 U/L (10-49); Albumin, Serum 4.7 gm/dL (3.5-5.0); Alkaline Phosphatase 132 U/L (46-116); Anion Gap 6 (7-16); BUN/Creatinine Ratio 14 Ratio (12-20); Bilirubin,Total 0.3 mg/dL (0.3-1.2); Blood Urea Nitrogen 11 mg/dL (9-23); Calcium 9.4 mg/dL (8.3-10.6); Calcium (Corrected) 9.4 mg/dL (8.5-10.1); Carbon Dioxide 30.1 mMol/L (20.0-31.0); Chloride 97 mMol/L (98-107); Cholesterol 199 mg/dL (132-200); Creatinine (Component) 0.8 mg/dL (0.6-1.3); Free T4 (Free Thyroxine) 1.13 ng/dL (0.89-1.76); Globulin 2.4 gm/dL (2.3-3.5); Glucose 65 mg/dL (74-106); HDL Cholesterol 66 mg/dL (40-60); LDL Cholesterol,Calculated 114 mg/dL (0-130); Osmolality,Calculated 263 (275-295); Potassium 4.3 mMol/L (3.4-5.1); Sodium 133 mMol/L (136-145); Thyroid Stimulating Hormone 1.42 uIU/mL (0.55-4.78); Total Protein 7.1 gm/dL (5.7-8.2); Triglycerides 96 mg/dL (30-150); eGFR > 60 See Note
[2024-07-28 13:35] LABS: Glucose Estimated Average 97 mg/dL (80-131)
[2024-08-01 06:58] LABS: T3,Total* 92 ng/dL (76-181)
== END | disposition home or self-care (01) ==
LOC: COPL 11:39
PROVIDERS: PCP Nurse Practitioner Primary Care; Referring Provider Nurse Practitioner Primary Care; Visit Provider Nurse Practitioner Primary Care
DX: F31.81 Bipolar II disorder (principal); E78.00 Pure hypercholesterolemia, unspecified; G89.29 Other chronic pain; M79.7 Fibromyalgia; R60.0 Localized edema; Z87.891 Personal history of nicotine dependence
CPT/HCPCS: 36415; 80053; 80061; 83036; 84439; 84443; 84480; 85025

== ENCOUNTER 2024-08-20 19:21 | Emergency (ER) | payer OTHER, SELFPAY ==
[2024-08-20 19:22] VITALS: BP 159/78; PULSE 82; RESP 18; TEMP 36.4; O2SAT 95; BMI 22.1
--- NOTE | 2024-08-20 20:05 | XR_ITS ---
Examination: CT lumbar spine, without contrast. 2-D sagittal reconstructions. 2-D coronal reconstructions. 3-D reconstructions. Date and time of exam:August 20, 20242019 hours INDICATIONS: Patient fell today with injury of the lower back, lower back pain CTDI: vol (mGy):14.5 DLP: (mGycm):396 Technique: Multiple 1.25 mm axial sections of the lumbar spine without intravenous contrast have been obtained. 2-D sagittal and coronal reconstructions have been obtained. 3-D reconstructions have been obtained. Low dose protocols were performed. One or more of the following dose reduction techniques were used; automated exposure control, adjustment of the mA and/or KV according to patient size, use of iterative reconstruction technique. Findings: Satisfactory alignment lumbar vertebral bodies No lumbar vertebral body compression fracture. Lumbar pedicles, laminae, transverse and posterior spinous processes intact Axial images demonstrate no focal lumbar disc protrusion IMPRESSION: No acute lumbar fracture
--- NOTE | 2024-08-20 20:05 | XR_ITS ---
Examination: Duplex scan of the lower extremity, unilateral right complete Date and time of exam: August 20, 20242 hours INDICATIONS: Right leg pain 3 months Technique: Duplex scan of the extremity veins using B-mode/grayscale imaging and Doppler spectral analysis and color flow Attention is directed to internal echogenicity, compression and augmentation involving these veins, color flow assessment, spectral analysis Findings: Major deep venous structures in the extremity demonstrate normal course and caliber. There is no evidence of deep vein thrombosis. Normal color flow and spectral analysis Impression: Negative for DVT..
--- NOTE | 2024-08-20 20:07 | PD.EDRME ---
Rapid Medical Screening Exam RME Arrival date/time: 08/20/24 19:21 48F with history of psych presents to ED with sudden worsening lower back pain that radiates down RLE. Patient states it hurts so bad that she's fallen several times today. Patient denies dysuria/hematuria. Chief Complaint: General Adult/Misc Complain Vital signs: Vital Signs Temperature 97.6 F 08/20/24 19:22 Pulse Rate 82 08/20/24 19:22 Respiratory Rate 18 08/20/24 19:22 Blood Pressure 159/78 H 08/20/24 19:22 Pulse Oximetry (%) 95 08/20/24 19:22 Oxygen Delivery Method Room Air 08/20/24 19:22
[2024-08-20] MEDS: ONDANSETRON ODT 4 MG TABRAP PO (20:16)
[2024-08-20] MEDS: MORPHINE SULF INJ 10 MG/ML VIAL 5 MG IM (20:16)
[2024-08-20 21:02] LABS: Basophils # (Auto) 0.1 Thou/mm3 (0.0-0.2); Basophils % (Auto) 1 % (0-2.5); Eosinophils # (Auto) 0.1 Thou/mm3 (0.0-0.5); Eosinophils % (Auto) 1 % (0-10); Hematocrit 45.1 % (36.0-46.0); Hemoglobin 15.2 g/dL (12.0-16.0); Immature Granulocytes Auto 0.01 Thou/mm3 (0.00-0.00); Lymphocytes # (Auto) 1.9 Thou/mm3 (1.0-4.8); Lymphocytes % (Auto) 25 % (10-50); Mean Corpuscular HGB Conc 33.7 g/dl (31.0-37.0); Mean Corpuscular Hemoglobin 30.6 pg (25.0-35.0); Mean Corpuscular Volume 91 fL (80-100); Monocytes # (Auto) 0.5 Thou/mm3 (0.0-0.8); Monocytes % (Auto) 6 % (0-12); Neutrophils # (Auto) 5.1 Thou/mm3 (1.8-7.7); Neutrophils % (Auto) 66 % (37-80); Nucleated Red Blood Cell # 0.00 Thou/mm3 (0.00-0.00); Nucleated Red Blood Cell % 0 /100 WBC (0); Platelet Count 156 Thou/mm3 (140-440); RDW Standard Deviation 43.0 fL (36.4-46.3); Red Blood Count 4.96 Miln/mm3 (4.00-5.20); White Blood Count 7.7 Thou/mm3 (3.6-11.0)
[2024-08-20 21:21] LABS: HCG,Qualitative Serum Negative
[2024-08-20 22:30] LABS: Alanine Aminotransferase 28 U/L (10-49); Albumin, Serum 4.8 gm/dL (3.5-5.0); Albumin/Globulin Ratio 1.7 (1.2-2.2); Alkaline Phosphatase 152 U/L (46-116); Aspartate Amino Transferase 25 U/L (0-34); BUN/Creatinine Ratio 7 Ratio (12-20); Bilirubin,Total 0.2 mg/dL (0.3-1.2); Blood Urea Nitrogen 6 mg/dL (9-23); Calcium 10.2 mg/dL (8.3-10.6); Calcium (Corrected) 10.2 mg/dL (8.5-10.1); Carbon Dioxide 28.7 mMol/L (20.0-31.0); Creatinine (Component) 0.9 mg/dL (0.6-1.3); Estimated Creatinine Clearance 62.5 mL/min (>60); Globulin 2.9 gm/dL (2.3-3.5); Glucose 85 mg/dL (74-106); Total Protein 7.7 gm/dL (5.7-8.2); eGFR > 60 See Note
[2024-08-20 22:34] LABS: Anion Gap 5 (7-16); Chloride 103 mMol/L (98-107); Osmolality,Calculated 270 (275-295); Potassium 4.3 mMol/L (3.4-5.1); Sodium 137 mMol/L (136-145)
[2024-08-21] VITALS: BP 168/91; PULSE 76; RESP 18; TEMP 36.3; O2SAT 97
--- NOTE | 2024-08-21 00:52 | EKG_ITS ---
[facility] Test Date: 2024-08-21 Pat Name: ZARA JAUREGUI Department: Room: - Gender: Female Insulation Hoseman: : 1975 Requested By: Marcelo Stroud Order Number: [id number] Reading MD: Marcelo Stroud Measurements Intervals [place] Rate: 71 P: 68 NC: 162 QRS: 60 QRSD: 84 T: 66 QT: 415 QTc: 452 Interpretive Statements SINUS RHYTHM LEFT ATRIAL ENLARGEMENT [-0.15mV P-WAVE IN V1/V2] POSSIBLE RIGHT VENTRICULAR CONDUCTION DELAY [RSR (QR) IN V1/V2] No previous ECG available for comparison /store/S0/[id number]/[id number].pdf
--- NOTE | 2024-08-21 00:53 | XR_ITS ---
Examination: CTA chest, with intravenous contrast. CTA abdomen, with intravenous contrast. CTA pelvis, with intravenous contrast. 2-D sagittal and coronal reconstructions. 3-D reconstructions. Date and time of exam: August 21, 2024 0221 hours INDICATIONS: Right-sided chest and abdominal pain today, clinical diagnosis aortic dissection CTDI vol (mgy) 7.28 DLP (MGycm) 497 Technique: Multiple CTA images, 2.0 mm slice thickness, obtained chest, abdomen, pelvis, with the high-resolution 64 slice scanner. 100 cc Isovue 370 is administered intravenously. Sagittal and coronal 2-D reconstructions are obtained. 3-D reconstructions, angiographic images are obtained. 3-D postprocessing, including vascular maximum intensity projections. Low dose protocols were performed. One or more of the following dose reduction techniques were used; automated exposure control, adjustment of the mA and/or KV according to patient size, use of iterative reconstruction technique. Findings: Small bilateral thyroid nodules No thoracic aortic aneurysm dilatation or dissection No pulmonary artery filling defects No pneumonia or pulmonary edema, no pleural disease No abdominal aortic aneurysmal dilatation or dissection No focal liver or splenic lesions Absent gallbladder No pancreatic mass No common bile duct stones No hydronephrosis No bowel obstruction Diffuse colitis pattern, wall thickening and inflammatory change throughout the colon Normal appendix Anteverted uterus 25 mm ovarian cyst IMPRESSION: No thoracic or abdominal aortic aneurysmal dilatation or dissection No pneumonia or pulmonary edema. Small bilateral thyroid nodules. Diffuse nonspecific colitis pattern Normal appendix 25 mm right pelvic cyst
[2024-08-21 01:33] LABS: Collection Type, Urine Clean Catch; WBC,Urine 0 /hpf (0-5)
[2024-08-21] MEDS: fentaNYL CIT INJ 50 mCg/ML AMP 2ML IVP (01:40)
[2024-08-21 01:42] LABS: Troponin I < 0.002 ng/mL (0.0-0.045)
[2024-08-21 01:50] LABS: Bilirubin,Urine Negative (Negative); Blood,Urine Negative (Negative); Clarity,Urine Clear (Clear/Hazy); Color,Urine Colorless (Lt Yel-Yel); Culture Indicated,Urine Not Indicated; Glucose, Urine Negative (Negative); Ketones,Urine Negative (Negative); Leukocyte Esterase,Urine Negative (Negative); Nitrite,Urine Negative (Negative); PH,Urine 6.5 (5.0-7.0); Protein,Urine Negative (Neg - Trace); RBC,Urine < 1 /hpf (0-3); Specific Gravity,Urine 1.004 (1.001-1.035); Squamous Epithelial Cell,Urine < 1 /hpf (0-5); Urobilinogen,Urine Negative mg/dL (0.0-1.0)
[2024-08-21 03:13] VITALS: BP 142/73; PULSE 70; RESP 19; TEMP 36.4; O2SAT 95
--- NOTE | 2024-08-21 03:58 | PRELIM_ITS ---
CT angiogram of the chest, abdomen and pelvis with intravenous contrast (axial sections with sagittal and coronal reformats) August 21, 2024 0221 hours Clinical History: r/o dissection No prior study is available for comparison. Findings: The thoracic aorta demonstrates no evidence of dissection or aneurysm. The origins of the right brachiocephalic, left common carotid and left subclavian arteries are patent. The abdominal aorta demonstrates mild atheromatous calcification without evidence of dissection or aneurysm. The celiac, superior mesenteric, inferior mesenteric and bilateral renal arteries are patent to the extent visualized. The common iliac, external iliac and internal iliac arteries are patent bilaterally. There is no filling defect within the pulmonary artery divisions to suggest pulmonary thromboembolism. No evidence of mediastinal mass or lymphadenopathy. There is no pericardial effusion. Coronary artery calcification is absent. Small hiatal hernia is present. Atelectasis in right middle lobe and left lingula. Otherwise lungs are clear. No evidence of pleural effusion or pneumothorax. Small nodules are seen in both lobes of the thyroid. The gallbladder is surgically absent. Small hypodense lesions are noted in the left kidney, too small to characterize. The liver, spleen, pancreas, adrenals and right kidney are unremarkable. No evidence of bowel obstruction. The appendix is within normal limits (cor image 82/[id number]). Mild wall thickening of ascending colon. There is no significant mesenteric or retroperitoneal adenopathy. The urinary bladder is unremarkable. There is no free fluid, free air or abscess. The uterus is unremarkable. 2.6 cm right ovarian cyst. The osseous structures are unremarkable. Impression: No evidence of aortic dissection or aneurysm. No evidence of pulmonary thromboembolism or other acute intrathoracic, intra- abdominal or pelvic pathology. 2.6 cm right ovarian cyst. Recommend follow-up with ultrasound. Findings consistent with colitis as described. Other findings as described above. Report Electronically Signed By: Carlos Pagan 08/21/2024 3:57:48 AM [EST]
--- NOTE | 2024-08-21 06:42 | PD.EDADULT ---
ED General RME/HPI General Chief complaint: General Adult/Misc Complain Stated complaint: RIGHT SIDE PAIN Time Seen by Provider: 08/21/24 06:40 Arrival date/time: 08/20/24 19:21 Limitations: no limitations RME / HPI RME / HPI narrative: 08/20/24 19:21 48F with history of psych presents to ED with sudden worsening lower back pain that radiates down RLE. Patient states it hurts so bad that she's fallen several times today. Patient denies dysuria/hematuria. DR. ZAMORA MAIN ED EVALUATION: 48 year old female presents to the Emergency Department with complaints of pain from her right shoulder blade down to her right leg with radiation to her right groin as well. Pain now is 6.5/10 and described as aching. Onset of pain 3 months. She states she has been taking Ibuprofen and Tylenol for the pain with little to no relief. She already is being followed and has a MRI pending and GI consult. PMHx: Peripheral Neuropathy, fibromyalgia, schizophrenia, bipolar disorder, depression (manic depressive), anxiety. 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 Hysterectomy, cholecystectomy, and tubal ligation. Ectopic . COPD from smoking, but quit smoking. Social Hx: Former smoker. No alcohol or substance use. Related Data Home Medications ?Medication ?Instructions ?Recorded ?Confirmed cariprazine 6 mg capsule (Vraylar) 6 mg PO BID ##0 11/12/15 05/08/23 clonazepam 1 mg tablet (Klonopin) 2 mg PO TID #0 tabs 11/12/15 05/08/23 carbamazepine 200 mg tablet 200 mg PO BID 08/06/18 05/08/23 lumateperone 42 mg capsule 42 mg PO QDAY 08/14/22 05/08/23 (Caplyta) vortioxetine 20 mg tablet 20 mg PO QDAY 08/14/22 05/08/23 (Trintellix) Previous Rx's ?Medication ?Instructions ?Recorded cyclobenzaprine 10 mg tablet 10 mg PO HS #6 tabs 09/11/23 lidocaine 5 % topical patch 1 patch topical QDAY #15 ea 11/04/23 naproxen 500 mg tablet 500 mg PO BID PRN pain #30 tabs 11/04/23 gabapentin 100 mg capsule 100 mg PO TID PRN nerve pain #20 02/14/24 caps ciprofloxacin HCl 250 mg tablet 250 mg PO BID mild colitis #14 tabs 08/21/24 hydrocodone 5 mg-acetaminophen 325 1 tab PO TID PRN pain #14 tabs 08/21/24 mg tablet Allergies Allergy/AdvReac Type Severity Reaction Status Date / Time lactose Allergy Severe nause Verified 08/20/24 19:22 Penicillins Allergy Mild Rash Verified 08/20/24 19:22 codeine Allergy Unknown Vomiting Verified 08/20/24 19:22 Sulfa (Sulfonamide Allergy Unknown Rash Verified 08/20/24 19:22 Antibiotics) gabapentin AdvReac Mild Vomiting Verified 08/20/24 19:22 Review of Systems Review of Systems Systems Reviewed: All systems reviewed, normal except as documented Past Medical History Past Medical History NEUROLOGIC: Positive Neurological Disorders, Seizures and Peripheral Neuropathy RESPIRATORY: Positive Chronic Obstructive Pulmonary Disease (COPD), Asthma (COPD), Bronchitis (in past) and Pneumonia (in past) GASTROINTESTINAL: Positive Gastrointestinal Disorders and Gall Bladder Disease REPRODUCTIVE: Positive Previous Pregnancies MUSCULOSKELETAL: Positive Musculoskeletal Disorders, Fibromyalgia and Fractures HEMATOLOGIC: Positive Blood Disorders and Anemia PSYCHO/SOCIAL: Positive Psychiatric Problems, Schizophrenia, Bipolar Disorder, Depression (manic depressive) and Anxiety OTHER HISTORY: Positive Hospitalization, Blood Transfusions, Chicken Pox and Clostridium Difficile Family History FAMILY HISTORY: Positive Family Psychiatric Problems, Family Cardiac Disorders and Family Surgery Surgical History SURGICAL: Positive Abdominal Surgery, Hysterectomy and Tubal Ligation Social History SMOKING STATUS: Former smoker SECOND HAND EXPOSURE: No SUBSTANCE USE: does not use ED Exam General Limitations: Present no limitations General appearance: Present alert and in no apparent distress Head Head exam: Present atraumatic, normocephalic and normal inspection Eye Eye exam: Present normal appearance, PERRL and EOMI ENT ENT exam: Present normal exam, normal oropharynx and mucous membranes moist Neck Neck exam: Present normal inspection, full ROM and trachea midline Chest Chest inspection: Present normal inspection and symmetric chest wall rise Respiratory Respiratory exam: Present normal lung sounds bilaterally Cardiovascular Cardiovascular exam: Present regular rate, normal rhythm and normal heart sounds Abdominal Exam Abdominal exam: Present soft and normal bowel sounds Extremities Exam Extremities exam: Present normal inspection and full ROM Back Exam Back exam: Present normal inspection and full ROM Neurological Exam Neurological exam: Present alert, oriented X3 and CN II-XII intact Psychiatric Psychiatric exam: Present normal affect and normal mood Skin Skin exam: Present warm, dry, intact and normal color Course Quality Measures none Orders Category Date Time Status CT Screening NOW Care 08/21/24 00:53 Completed EKG (ED ONLY) *Do not use* NOW Care 08/21/24 00:52 Completed Insert IV NOW Care 08/21/24 00:[address] angio chest abdomen pelvis Stat Exams 08/21/24 00:[address] lumbar spine wo con Stat Exams 08/20/24 20:05 Completed EKG (ED Only) Stat Exams 08/21/24 00:52 Draft US venous doppler LE RT Stat Exams 08/20/24 20:05 Completed CBC Stat Lab 08/20/24 20:27 Completed CMP [Comprehensive Metabolic Panel] Stat Lab 08/20/24 20:27 Completed HCG,Qualitative Serum Stat Lab 08/20/24 20:27 Completed Troponin I Stat Lab 08/20/24 20:27 Completed Urinalysis, C/S if Indicated Stat Lab 08/21/24 01:12 Completed Morphine Inj Med 08/20/24 20:06 Discontinued 5 mg IM X1 ONE Ondansetron Odt [Zofran Odt] Med 08/20/24 20:06 Discontinued 4 mg PO X1 ONE fentaNYL INJ [Sublimaze Inj] Med 08/21/24 00:54 Discontinued 50 mcg IVP X1 ONE Vital Signs Vital signs: Vital Signs Temperature 97.6 F 08/20/24 19:22 Pulse Rate 82 08/20/24 19:22 Respiratory Rate 18 08/20/24 19:22 Blood Pressure 159/78 H 08/20/24 19:22 Pulse Oximetry (%) 95 08/20/24 19:22 Oxygen Delivery Method Room Air 08/20/24 19:22 Discharge Plan Plan Patient Disposition: HOME (Self Care) Prescriptions/Referrals Prescriptions/Med Rec: New ciprofloxacin HCl 250 mg tablet 250 mg PO BID MDD 2 Qty: 14 0RF hydrocodone-acetaminophen 5-325 mg tablet 1 tab PO TID MDD 3 PRN (Reason: pain) Qty: 14 0RF No Action clonazepam [Klonopin] 1 MG tablet 2 mg PO TID Qty: 0 Vraylar 6 MG capsule 6 mg PO BID Qty: 0 carbamazepine 200 mg Tablet 200 mg PO BID naproxen 500 mg tablet 500 mg PO BID PRN (Reason: pain) Qty: 30 0RF lidocaine 5 % adhesive patch,medicated 1 patch topical QDAY Qty: 15 0RF Rx Instructions: leave on most painful area for up to 12 hrs Trintellix 20 mg Tablet 20 mg PO QDAY Caplyta 42 mg Capsule 42 mg PO QDAY cyclobenzaprine 10 mg tablet 10 mg PO HS Qty: 6 0RF gabapentin 100 mg capsule 100 mg PO TID PRN (Reason: nerve pain) Qty: 20 0RF Referrals: Shahid Guzmán MD [Primary Care Provider] - In 1 week Problem List Clinical Impression: Radicular low back pain, Colitis Impression comment: MILD colitis Patient/Caregiver Discharge Instructions Additional Instructions: Please follow-up with your primary care physician within 2-3 days. Follow up with GI specialist and get MRI done. Return to the Emergency Department as needed. Print Language: Japanese Stand Alone Forms: [employer] Award Info., Patient Portal Info Letter MDM Narrative [facility] hospital course: I, Kathy Elliott, am scribing for and in the presence of Dr. Zamora. Clinical Information Provided by patient Medical Records Reviewed [facility] Meds/Rx Considered, not Ordered None Labs/Rad/Tests considered, not Ordered None Chronic Illness/Social Conditions Add or document further as needed: PMHx: Peripheral Neuropathy, fibromyalgia, schizophrenia, bipolar disorder, depression (manic depressive), anxiety. 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 Hysterectomy, cholecystectomy, and tubal ligation. Ectopic . COPD from smoking, but quit smoking. Social Hx: Former smoker. No alcohol or substance use. EKG EKG Interpretation narrative: My interpretation: EKG performed at 0110 hours, sinus rhythm, rate 71, no acute changes, no STEMI Imaging Radiology reports / interpretation(s): Procedure(s): CT angio chest abdomen pelvis Accession Number(s): [id number] cc: Haresh Woods MD; Shahid Guzmán MD; Marcelo Stroud PA-C~ Examination: CTA chest, with intravenous contrast. CTA abdomen, with intravenous contrast. CTA pelvis, with intravenous contrast. 2-D sagittal and coronal reconstructions. 3-D reconstructions. Date and time of exam: August 21, 2024 0221 hours INDICATIONS: Right-sided chest and abdominal pain today, clinical diagnosis aortic dissection CTDI vol (mgy) 7.28 DLP (MGycm) 497 Technique: Multiple CTA images, 2.0 mm slice thickness, obtained chest, abdomen, pelvis, with the high-resolution 64 slice scanner. 100 cc Isovue 370 is administered intravenously. Sagittal and coronal 2-D reconstructions are obtained. 3-D reconstructions, angiographic images are obtained. 3-D postprocessing, including vascular maximum intensity projections. Low dose protocols were performed. One or more of the following dose reduction techniques were used; automated exposure control, adjustment of the mA and/or KV according to patient size, use of iterative reconstruction technique. Findings: Small bilateral thyroid nodules No thoracic aortic aneurysm dilatation or dissection No pulmonary artery filling defects No pneumonia or pulmonary edema, no pleural disease No abdominal aortic aneurysmal dilatation or dissection No focal liver or splenic lesions Absent gallbladder No pancreatic mass No common bile duct stones No hydronephrosis No bowel obstruction Diffuse colitis pattern, wall thickening and inflammatory change throughout the colon Normal appendix Anteverted uterus 25 mm ovarian cyst IMPRESSION: No thoracic or abdominal aortic aneurysmal dilatation or dissection No pneumonia or pulmonary edema. Small bilateral thyroid nodules. Diffuse nonspecific colitis pattern Normal appendix 25 mm right pelvic cyst Dictated By: Haresh Woods MD Procedure(s): US venous doppler LE RT Accession Number(s): [id number] cc: Haresh Woods MD; Shahid Guzmán MD; Marcelo Stroud PA-C~ Examination: Duplex scan of the lower extremity, unilateral right complete Date and time of exam: August 20, 20242041 hours INDICATIONS: Right leg pain 3 months Technique: Duplex scan of the extremity veins using B-mode/grayscale imaging and Doppler spectral analysis and color flow Attention is directed to internal echogenicity, compression and augmentation involving these veins, color flow assessment, spectral analysis Findings: Major deep venous structures in the extremity demonstrate normal course and caliber. There is no evidence of deep vein thrombosis. Normal color flow and spectral analysis Impression: Negative for DVT.. Dictated By: Haresh Woods MD Procedure(s): CT lumbar spine wo con Accession Number(s): [id number] cc: Haresh Woods MD; Shahid Guzmán MD; Macrelo Stroud PA-C~ Examination: CT lumbar spine, without contrast. 2-D sagittal reconstructions. 2-D coronal reconstructions. 3-D reconstructions. Date and time of exam:August 20, 2024 2020 hours INDICATIONS: Patient fell today with injury of the lower back, lower back pain CTDI: vol (mGy):14.5 DLP: (mGycm):396 Technique: Multiple 1.25 mm axial sections of the lumbar spine without intravenous contrast have been obtained. 2-D sagittal and coronal reconstructions have been obtained. 3-D reconstructions have been obtained. Low dose protocols were performed. One or more of the following dose reduction techniques were used; automated exposure control, adjustment of the mA and/or KV according to patient size, use of iterative reconstruction technique. Findings: Satisfactory alignment lumbar vertebral bodies No lumbar vertebral body compression fracture. Lumbar pedicles, laminae, transverse and posterior spinous processes intact Axial images demonstrate no focal lumbar disc protrusion IMPRESSION: No acute lumbar fracture Dictated By: Haresh Woods MD Medication Administration(s) Medication Administration History Discontinued Medications Fentanyl Citrate (Fentanyl Cit Inj 50 Mcg/Ml Amp 2ml) 50 mcg IVP X1 ONE Stop: 08/21/24 00:55 Last Admin: 08/21/24 01:40 Dose: 50 mcg Documented By: COLETTE Morphine Sulfate (Morphine Sulf Inj 10 Mg/Ml Vial) 5 mg IM X1 ONE Stop: 08/20/24 20:07 Last Admin: 08/20/24 20:16 Dose: 5 mg Documented By: KWAKU Ondansetron HCl (Ondansetron Odt 4 Mg Tabrap) 4 mg PO X1 ONE; Protocol Stop: 08/20/24 20:07 Last Admin: 08/20/24 20:16 Dose: 4 mg Documented By: KWAKU Diagnosis Differential diagnosis: Radicular back pain, muscle spasm, sciatica Most likely dx, and/or detailed dx discussion: Radicular back pain Mild colitis Dispositon Disposition: Discharge Home
[2024-08-21 06:50] VITALS: BP 124/73; PULSE 69; RESP 18; TEMP 36.5; O2SAT 94
[2024-08-21 08:23] VITALS: BP 147/78; O2SAT 97
[2024-08-21 08:30] VITALS: BP 142/77; O2SAT 95
== END 2024-08-21 08:46 | disposition home or self-care (01) ==
PROVIDERS: Physician Assistant; Emergency Provider Family Medicine; PCP Family Medicine
DX: K52.9 Noninfective gastroenteritis and colitis, unspecified (principal); M54.16 Radiculopathy, lumbar region; E04.2 Nontoxic multinodular goiter; N94.89 Other specified conditions associated with female genital organs and menstrual cycle; M79.604 Pain in right leg; R94.31 Abnormal electrocardiogram [ECG] [EKG]
CPT/HCPCS: 36415; 71275; 72131; 74174; 80053; 81001; 84484; 84703; 85025; 93971; 96372; 96374; 99285; A4649; J2270; J3010; Q0162; Q9967

== ENCOUNTER 2024-09-04 08:50 | Day surgery (SDC) | payer OTHER, SELFPAY ==
--- NOTE | 2024-09-02 10:49 | EKG_ITS ---
[facility] Test Date: 2024-09-02 Pat Name: ZARA JAUREGUI Department: Room: - Gender: Female Dialysis Rn: AMRIK : 1975 Requested By: Aziza Tadeo Order Number: [id number] Reading MD: Aziza Tadeo Measurements Intervals Dawson Rate: 66 P: 73 HI: 177 QRS: 66 QRSD: 73 T: 69 QT: 417 QTc: 437 Interpretive Statements SINUS RHYTHM LEFT ATRIAL ENLARGEMENT [-0.15mV P WAVE IN V1/V2] POSSIBLE RIGHT VENTRICULAR CONDUCTION DELAY [RSR (QR) IN V1/V2] SEPTAL MYOCARDIAL INFARCTION , OF INDETERMINATE AGE [40+ ms Q WAVE IN V1/V2] Compared to ECG 08/21/2024 01:10:39 Myocardial infarct finding now present /store/S0/[id number]/[id number].pdf
[2024-09-02 11:02] LABS: INR 1.0 (0.9-1.3); Partial Thromboplastin Time 29.8 Seconds (22.0-36.0); Prothrombin Time 11.0 Seconds (9.0-12.2)
[2024-09-02 11:06] LABS: Alanine Aminotransferase 19 U/L (10-49); Albumin, Serum 4.3 gm/dL (3.5-5.0); Albumin/Globulin Ratio 1.7 (1.2-2.2); Alkaline Phosphatase 134 U/L (46-116); Anion Gap 9 (7-16); Aspartate Amino Transferase 16 U/L (0-34); BUN/Creatinine Ratio 6 Ratio (12-20); Bilirubin,Total 0.4 mg/dL (0.3-1.2); Blood Urea Nitrogen 5 mg/dL (9-23); Calcium 9.2 mg/dL (8.3-10.6); Calcium (Corrected) 9.2 mg/dL (8.5-10.1); Carbon Dioxide 25.2 mMol/L (20.0-31.0); Chloride 107 mMol/L (98-107); Creatinine (Component) 0.8 mg/dL (0.6-1.3); Globulin 2.6 gm/dL (2.3-3.5); Glucose 105 mg/dL (74-106); Osmolality,Calculated 278 (275-295); Potassium 4.0 mMol/L (3.4-5.1); Sodium 141 mMol/L (136-145); Total Protein 6.9 gm/dL (5.7-8.2); eGFR > 60 See Note
[2024-09-02 11:51] LABS: HCG,Qualitative Serum Negative
[2024-09-03 11:06] VITALS: BMI 21.6
[2024-09-04] VITALS (8 sets, daily range): BP systolic 121–144; BP diastolic 68–82; PULSE 67–74; RESP 14–18; TEMP 36.3; O2SAT 95–100; BMI 21.0
[2024-09-04] MEDS: RINGERS LACTATED 1000 ML 1,000 ML 20 ML IV (09:52)
== END 2024-09-04 12:50 | disposition home or self-care (01) ==
PROVIDERS: PCP Physician Assistant; Referring Provider Specialist; Visit Provider Specialist
PROC: 0DBE8ZX Excision of Large Intestine, Via Natural or Artificial Opening Endoscopic, Diagnostic (ICD-10-PCS; CPT 45380; principal; 2024-09-04 13:00)
PROC: (CPT 43239; 2024-09-04 13:00)
DX: K52.9 Noninfective gastroenteritis and colitis, unspecified (principal); Z01.810 Encounter for preprocedural cardiovascular examination; D12.5 Benign neoplasm of sigmoid colon; K63.89 Other specified diseases of intestine; K62.89 Other specified diseases of anus and rectum; K63.5 Polyp of colon; K64.9 Unspecified hemorrhoids; K29.71 Gastritis, unspecified, with bleeding; K20.91 Esophagitis, unspecified with bleeding
CPT/HCPCS: 45385; 45380; 43239; 36415; 80053; 84703; 85610; 85730; 93005; J7120

== ENCOUNTER → 2024-09-05 | Outpatient (CLI) | payer OTHER, SELFPAY ==
--- NOTE | 2024-09-05 16:00 | XR_ITS ---
Examination: MRI lumbar spine without contrast Date and time of exam: September 05, 2024, 1701 hours INDICATIONS: Lower back pain radiating down the right leg and severe pain with walking weakness in the legs for months Technique: Multiple MRI axial and sagittal sections lumbar spine. Sagittal T2-weighted images, TR 3500, TE 118 T1 weighted transverse sections, TR 688 T8.5, T2-weighted sagittal sections T1 weighted sagittal sections TR 621, TE 30 T2 axial sections, TR 4, 190, TE 84. Findings: Adequate alignment lumbar vertebral bodies No lumbar fracture Disc desiccation L4-L5 Normal marrow signal lumbar vertebral bodies Axial images demonstrate no focal lumbar disc protrusions No impingement upon the conus medullaris or cauda equina IMPRESSION: No lumbar fracture No acquired spinal stenosis
== END | disposition home or self-care (01) ==
LOC: SMRI 09-11 06:48
PROVIDERS: PCP Family Medicine; Referring Provider Physician Assistant; Visit Provider Physician Assistant
DX: M54.50 Low back pain, unspecified (principal)
CPT/HCPCS: 72148

== ENCOUNTER → 2024-09-24 | Outpatient (CLI) | payer OTHER, MEDICAID, SELFPAY ==
--- NOTE | 2024-09-24 10:00 | XR_ITS ---
Examination: Abdomen sonogram, complete Date and time of exam: September 24, 2024 10:10 AM INDICATIONS: Epigastric pain and diarrhea beginning one year ago. Technique: Multiple real-time grayscale transabdominal sonographic images of the abdomen have been obtained. Findings: Absent gallbladder Common bile duct 0.7 cm Pancreatic head 1.5 cm Aorta not enlarged. Liver 18.4 cm fatty infiltration Normal hepatopedal portal venous flow Patent IVC Right kidney 9.6 cm cortex 1.0 cm Left kidney 9.9 cm cortex 1.4 cm Moderate renal parenchymal scar formation Splenomegaly 13.9 cm IMPRESSION: Common bile duct 0.7 cm no stones Hepatosplenomegaly Bilateral renal cortical thinning Moderate bilateral renal parenchymal scar formation
== END | disposition home or self-care (01) ==
PROVIDERS: PCP Family Medicine; Referring Provider Specialist; Visit Provider Specialist
DX: R16.2 Hepatomegaly with splenomegaly, not elsewhere classified (principal); N28.89 Other specified disorders of kidney and ureter
CPT/HCPCS: 76700